=== PATIENT | female | born 1975 | race Hispanic/Latino ===

== ENCOUNTER 2017-01-17 12:29 | Outpatient (CLI) | payer OTHER ==
--- NOTE | 2017-01-17 14:18 | MMO ---
BILATERAL SCREENING MAMMOGRAMS HISTORY: A 41-year-old female for screening mammography. COMPARISON: 01/12/2016 FINDINGS: Bilateral MLO and CC views of the breasts show extremely dense parenchyma, which may obscure lesions on mammography. There is no evidence of suspicious mass, suspicious cluster of microcalcifications , or area of architectural distortion. Interpretation of this mammogram was performed with the assistance of computer aided detection. IMPRESSION: BI-RADS Category 1: Negative. Annual screening mammography is recommended. POS: JAY JAY
== END 2017-01-17 12:30 | disposition home or self-care (01) ==
LOC: MAMMO 12:29
PROVIDERS: ATTEND Obstetrics & Gynecology
DX: Z12.31 Encounter for screening mammogram for malignant neoplasm of breast (principal)
CPT/HCPCS: 77067; G0202

== ENCOUNTER 2018-01-19 07:49 | Outpatient (CLI) | payer OTHER | END 2018-01-19 07:50 | disposition home or self-care (01) | LOC: BICMAMMO 07:49 | PROVIDERS: ATTEND Obstetrics & Gynecology | DX: Z12.31 Encounter for screening mammogram for malignant neoplasm of breast (principal); R92.1 Mammographic calcification found on diagnostic imaging of breast | CPT/HCPCS: 77063; 77067 ==

== ENCOUNTER 2020-02-25 13:00 | Outpatient (CLI) | payer OTHER ==
--- NOTE | 2020-02-25 13:43 | MMO ---
Left Breast MAMMO Unilat Diag DDI LT+ANA. CLINICAL HISTORY: Patient is 44 years old and is seen for diagnostic exam. The patient has no family history of breast cancer. The patient has no personal history of cancer. VIEWS: The views performed were: left craniocaudal spot compression magnification; left mediolateral oblique spot compression magnification; left mediolateral spot compression magnification; and left mediolateral with tomosynthesis. FILMS COMPARED: The present examination has been compared to prior imaging studies performed at [facility] on 02/12/2019 and 02/14/2020, at [facility] on 01/19/2018, and at [facility] on 01/17/2017. This study has been interpreted with the assistance of computer-aided detection. MAMMOGRAM FINDINGS: The breast is extremely dense, which may lower the sensitivity of mammography. There are benign appearing calcifications seen in the left breast. There are no suspicious masses, suspicious calcifications, or new areas of architectural distortion. IMPRESSION: THERE IS NO MAMMOGRAPHIC EVIDENCE OF MALIGNANCY. A ROUTINE FOLLOW-UP MAMMOGRAM IN 1 YEAR IS RECOMMENDED. THE RESULTS OF THIS EXAM WERE SENT TO THE PATIENT. ACR BI-RADS Category 2 - Benign finding MAMMOGRAPHY NOTE: 1. A negative mammogram report should not delay a biopsy if a dominant of clinically suspicious mass is present. 2. Approximately 10% to 15% of breast cancers are not detected by mammography. 3. Adenosis and dense breasts may obscure an underlying neoplasm. Reported by: JESU SAPP MD Electonically Signed: [id number]
== END 2020-02-25 13:01 | disposition home or self-care (01) ==
LOC: BICMAMMO 13:00
PROVIDERS: ATTEND Obstetrics & Gynecology
DX: R92.8 Other abnormal and inconclusive findings on diagnostic imaging of breast (principal)
CPT/HCPCS: G0279